=== PATIENT | female | born 1965 | race Caucasian/White ===

== ENCOUNTER 2019-01-31 14:52 | Inpatient (IN) | payer BC ==
[~2019-01-31] VITALS: Ht 172.7 cm; Wt 134.5 kg
[2019-01-31] MEDS ORDERED: ketorolac tromethamine 15mg/ml inj. IV ONE (15:55)
[2019-01-31] MEDS ORDERED: normal saline 1000ML IV soln IVB ONE (15:55)
[2019-01-31 16:23] LABS: BASOPHILS # (AUTO) 0.1 X10'3 (0-0.2); BASOPHILS % (AUTO) 1.2 % (0-1); EOSINOPHILS # (AUTO) 0.1 X10'3 (0-0.9); EOSINOPHILS % (AUTO) 1.5 % (0-6); HEMATOCRIT 44.4 % (35.0-45.0); HEMOGLOBIN 15.2 g/dl (12.0-16.0); LYMPHOCYTES # (AUTO) 0.9 X10'3 (1.1-4.8); LYMPHOCYTES % (AUTO) 18.5 % (21-51); MEAN CORPUSCULAR HEMOGLOBIN 29.2 PG (27.0-31.0); MEAN CORPUSCULAR HGB CONC 34.3 g/dL (33.0-36.5); MEAN CORPUSCULAR VOLUME 85.2 FL (78-98); MONOCYTES # (AUTO) 0.3 X10'3 (0-0.9); MONOCYTES % (AUTO) 6.5 % (2-12); NEUTROPHILS # (AUTO) 3.6 X10'3 (1.8-7.7); NEUTROPHILS % (AUTO) 72.3 % (42-75); PLATELET COUNT 176 X10'3 (140-440); RED BLOOD COUNT 5.21 X10'6 (4.20-5.60); RED CELL DISTRIBUTION WIDTH 14.9 % (11.5-14.5)
[2019-01-31 16:33] LABS: ALANINE AMINOTRANSFERASE 400 U/L (12-78); ALBUMIN 3.6 G/DL (3.4-5.0); ALBUMIN/GLOBULIN RATIO 0.9 (1.1-1.5); ALKALINE PHOSPHATASE 403 IU/L (46-116); AMYLASE 98 U/L (25-115); ANION GAP 10 (8-16); ASPARTATE AMINO TRANSFERASE 185 U/L (10-37); BILIRUBIN,TOTAL 3.4 MG/DL (0.1-1.0); BLOOD UREA NITROGEN 12 MG/DL (7-18); BUN/CREATININE RATIO 14.8 (6.6-38.0); CALCIUM 8.6 MG/DL (8.5-10.1); CHLORIDE 106 MMOL/L (99-107); CREATININE 0.81 MG/DL (0.40-0.90); GLUCOSE 126 MG/DL (70-104); LIPASE 780 U/L (73-393); POTASSIUM 3.9 MMOL/L (3.5-5.1); SODIUM 142 MMOL/L (135-145); TOTAL CARBON DIOXIDE 26.3 MMOL/L (24-32); TOTAL PROTEIN 7.6 G/DL (6.4-8.2); eGFR 74 ML/MIN
[2019-01-31 17:03] LABS: CLARITY,URINE CLEAR (Clear); COLOR,URINE YELLOW (Yellow); GLUCOSE, URINE NEGATIVE (Neg); KETONES,URINE NEGATIVE (Neg); LEUKOCYTE ESTERASE ,URINE SMALL (Neg); NITRITES, URINE NEGATIVE (Neg); OCCULT BLOOD,URINE NEGATIVE (Neg); PROTEIN,URINE NEGATIVE (Neg); UA COLLECTION TYPE CLN CATCH MIDSTREAM; UROBILINOGEN,URINE >=8.0 E.U/dL (0.2-1.0)
[2019-01-31 17:10] LABS: MUCUS STRANDS FEW /LPF (Neg); SQUAMOUS EPITHELIAL CELL,UR MANY /LPF (FEW)
[2019-01-31 17:12] LABS: BACTERIA,URINE 2+ /HPF (Neg); RBC,URINE 0-2 /HPF (0-2)
[2019-01-31] MEDS ORDERED: magnesium Cl slow-release 64mg tablet PO PRN (17:35)
[2019-01-31] MEDS ORDERED: ondansetron/PF 4mg/2ml inj IV PRN (17:35)
[2019-01-31] MEDS ORDERED: acetaminophen 325mg tablet PO PRN (17:35)
[2019-01-31] MEDS ORDERED: magnesium 2GM in 50ml NS 50 ML IV PRN (17:35)
[2019-01-31] MEDS ORDERED: potassium CL 10mEq/100ml bag 100 ML IV PRN ×2 (17:35)
[2019-01-31] MEDS ORDERED: morphine 2 MG/ML inj. syringe IV PRN ×2 (17:35)
[2019-01-31] MEDS ORDERED: magnesium hydroxide 30ml (MOM) UD suspension PO PRN (17:35)
[2019-01-31] MEDS ORDERED: mag hydrox/Alum hydrox/simeth 30ml oral suspension PO PRN (17:35)
[2019-01-31] MEDS ORDERED: magnesium 4gm in 100ml NS 100 ML IV PRN (17:35)
[2019-01-31] MEDS ORDERED: potassium Cl 20 mEq SR tablet PO PRN ×2 (17:35)
[2019-01-31] MEDS ORDERED: HYDROcodone/acetaminophen 5mg/325mg tablet PO PRN (17:35)
[2019-01-31] MEDS ORDERED: ESLI400T PO (18:42)
[2019-01-31] MEDS ORDERED: PANT40TA4 PO (18:43)
[2019-01-31] MEDS ORDERED: CELE50CA PO (18:43)
[2019-01-31] MEDS: normal saline 1000ml 1,000 ML IV SCH (18:44)
[2019-01-31] MEDS ORDERED: CELE-193 PO (18:48)
--- NOTE | 2019-01-31 20:26 | NUR ---
PHARMACIST KATHERIN CALLED AND SAID WE DO NOT CARRY APTIOM IN OUR PHARMACY. HAVE PT BRING IN MED FROM HOME. ADVISED PT WE DO NOT CARRY APTIOM AND TO BRING FROM HOME. SHE SAID OK AND IF SHE NEEDS IT TOMORROW WILL BRING IT IN
[2019-01-31 21:30] VITALS: BP 141/91
[2019-02-01] VITALS: BP 133/86
[2019-02-01 05:37] LABS: BASOPHILS % (AUTO) 0.6 % (0-1); EOSINOPHILS # (AUTO) 0.1 X10'3 (0-0.9); EOSINOPHILS % (AUTO) 1.9 % (0-6); HEMATOCRIT 40.8 % (35.0-45.0); HEMOGLOBIN 13.8 g/dl (12.0-16.0); LYMPHOCYTES % (AUTO) 18.9 % (21-51); MEAN CORPUSCULAR HEMOGLOBIN 29.1 PG (27.0-31.0); MEAN CORPUSCULAR HGB CONC 33.9 g/dL (33.0-36.5); MEAN CORPUSCULAR VOLUME 85.8 FL (78-98); MEAN PLATELET VOLUME 9.3 FL (7.4-10.4); MONOCYTES # (AUTO) 0.5 X10'3 (0-0.9); MONOCYTES % (AUTO) 9.9 % (2-12); NEUTROPHILS # (AUTO) 3.7 X10'3 (1.8-7.7); NEUTROPHILS % (AUTO) 68.7 % (42-75); PLATELET COUNT 150 X10'3 (140-440); RED BLOOD COUNT 4.75 X10'6 (4.20-5.60); RED CELL DISTRIBUTION WIDTH 15.1 % (11.5-14.5); WHITE BLOOD COUNT 5.3 X10'3 (4.5-11.0)
[2019-02-01] MEDS: normal saline 1000ml 1,000 ML IV SCH ×2 (05:41→16:53)
[2019-02-01 05:45] LABS: ALANINE AMINOTRANSFERASE 308 U/L (12-78); ALBUMIN 3.1 G/DL (3.4-5.0); ALBUMIN/GLOBULIN RATIO 0.9 (1.1-1.5); ALKALINE PHOSPHATASE 344 IU/L (46-116); ANION GAP 7 (8-16); ASPARTATE AMINO TRANSFERASE 131 U/L (10-37); BILIRUBIN,TOTAL 2.1 MG/DL (0.1-1.0); BLOOD UREA NITROGEN 12 MG/DL (7-18); CALCIUM 8.1 MG/DL (8.5-10.1); CHLORIDE 110 MMOL/L (99-107); CREATININE 0.86 MG/DL (0.40-0.90); GLUCOSE 125 MG/DL (70-104); MAGNESIUM 2.1 MG/DL (1.5-2.4); PHOSPHORUS 3.3 MG/DL (2.3-4.5); POTASSIUM 3.6 MMOL/L (3.5-5.1); SODIUM 144 MMOL/L (135-145); TOTAL CARBON DIOXIDE 26.6 MMOL/L (24-32); TOTAL PROTEIN 6.6 G/DL (6.4-8.2); eGFR 69 ML/MIN
[2019-02-01 06:04] LABS: LIPASE 5602 U/L (73-393)
--- NOTE | 2019-02-01 06:52 | NUR ---
Patient in room [facility]. I have received report from GLORIA Salazar and had the opportunity to ask questions and assume patient care.
[2019-02-01 06:53] VITALS: BP 125/79
[2019-02-01] MEDS: pantoprazole 40mg Tablet.DR PO SCH (07:48)
[2019-02-01] MEDS: K and/or MAG REPLACEMENT MC SCH (07:51)
[2019-02-01] MEDS ORDERED: ESLICARBAZEPINE ACETATE 400 MG PO SCH (08:00)
[2019-02-01 11:00] VITALS: BP 129/75
[2019-02-01 17:45] LABS: CHOL/HDL RATIO 4.8 (0.00-4.99); CHOLESTEROL 230 MG/DL (0-200); HDL CHOLESTEROL 48 MG/DL (35-60); LDL CHOLESTEROL 154 MG/DL (50-100); TRIGLYCERIDES 99 MG/DL (20-135)
[2019-02-01 18:17] LABS: PARTIAL THROMBOPLASTIN TIME 30 SECONDS (22-32)
[2019-02-01 18:19] LABS: % IRON SATURATION 38 % (11-46); IRON 106 UG/DL (49-151); TOTAL IRON BINDING CAPACITY 278 UG/DL (259-388)
[2019-02-01 18:30] LABS: FERRITIN 128 NG/ML (8-252)
--- NOTE | 2019-02-01 18:35 | NUR ---
Problems reprioritized. Patient report given, questions answered & plan of care reviewed with JOSE ALFREDO CASTRO.
[2019-02-01 20:00] VITALS: BP 137/85
[2019-02-01] MEDS ORDERED: ESLICARBAZEPINE ACETATE 800 MG PO SCH (21:45)
[2019-02-02] VITALS: BP 124/69
[2019-02-02] MEDS: normal saline 1000ml 1,000 ML IV SCH (02:58)
[2019-02-02 05:02] LABS: BASOPHILS % (AUTO) 0.6 % (0-1); EOSINOPHILS # (AUTO) 0.1 X10'3 (0-0.9); EOSINOPHILS % (AUTO) 2.3 % (0-6); HEMATOCRIT 39.4 % (35.0-45.0); HEMOGLOBIN 13.4 g/dl (12.0-16.0); LYMPHOCYTES # (AUTO) 1.3 X10'3 (1.1-4.8); LYMPHOCYTES % (AUTO) 30.4 % (21-51); MEAN CORPUSCULAR HEMOGLOBIN 29.2 PG (27.0-31.0); MEAN CORPUSCULAR HGB CONC 33.9 g/dL (33.0-36.5); MEAN PLATELET VOLUME 9.1 FL (7.4-10.4); MONOCYTES # (AUTO) 0.3 X10'3 (0-0.9); MONOCYTES % (AUTO) 7.5 % (2-12); NEUTROPHILS # (AUTO) 2.5 X10'3 (1.8-7.7); NEUTROPHILS % (AUTO) 59.2 % (42-75); PLATELET COUNT 132 X10'3 (140-440); RED BLOOD COUNT 4.58 X10'6 (4.20-5.60); RED CELL DISTRIBUTION WIDTH 14.7 % (11.5-14.5); WHITE BLOOD COUNT 4.2 X10'3 (4.5-11.0)
[2019-02-02 05:20] LABS: ALANINE AMINOTRANSFERASE 214 U/L (12-78); ALBUMIN 2.9 G/DL (3.4-5.0); ALBUMIN/GLOBULIN RATIO 0.8 (1.1-1.5); ALKALINE PHOSPHATASE 285 IU/L (46-116); ANION GAP 9 (8-16); ASPARTATE AMINO TRANSFERASE 75 U/L (10-37); BLOOD UREA NITROGEN 15 MG/DL (7-18); BUN/CREATININE RATIO 20.3 (6.6-38.0); CHLORIDE 108 MMOL/L (99-107); CREATININE 0.74 MG/DL (0.40-0.90); GLUCOSE 84 MG/DL (70-104); LIPASE 1054 U/L (73-393); PHOSPHORUS 3.6 MG/DL (2.3-4.5); POTASSIUM 3.6 MMOL/L (3.5-5.1); SODIUM 143 MMOL/L (135-145); TOTAL CARBON DIOXIDE 25.9 MMOL/L (24-32); TOTAL PROTEIN 6.4 G/DL (6.4-8.2); eGFR 82 ML/MIN
[2019-02-02 05:25] LABS: CALCIUM 8.7 MG/DL (8.5-10.1)
--- NOTE | 2019-02-02 06:30 | NUR ---
Problems reprioritized. Patient report given, questions answered & plan of care reviewed with LIZA RN.
[2019-02-02 07:30] VITALS: BP 127/76
[2019-02-02] MEDS: K and/or MAG REPLACEMENT MC SCH (08:00)
[2019-02-02] MEDS: pantoprazole 40mg Tablet.DR PO SCH (08:10)
[2019-02-02 11:40] VITALS: BP 117/71
[2019-02-02] MEDS ORDERED: HYDR-3965 PO (13:53)
[2019-02-03 07:35] LABS: HBSAG SCREEN Negative (Negative); HEP A AB, IGM Negative (Negative); HEP B CORE AB, IGM Negative (Negative); HEPATITIS C ANTIBODY <0.1 s/co ratio (0.0-0.9)
[2019-02-03 08:16] LABS: AFP,SERUM, TUMOR MARKER 2.4 ng/mL (0.0-8.3); GAMMA GLUTAMLY TRANSPEPTIDASE 1202 IU/L (0-60)
[2019-02-03 17:32] LABS: ANTINUCLEAR ANTIBODIES Negative (Negative)
== END 2019-02-02 14:27 | disposition home or self-care (01) | DRG 444 ==
LOC: ER 14:53 → ED HOLD 17:44 → SUR 3N 21:00
PROVIDERS: ADMIT Hospitalist; ATTEND Internal Medicine
DX: K80.42 Calculus of bile duct with acute cholecystitis without obstruction (principal); K85.90 Acute pancreatitis without necrosis or infection, unspecified; Z68.42 Body mass index [BMI] 45.0-49.9, adult; E86.0 Dehydration; E66.01 Morbid (severe) obesity due to excess calories; R19.7 Diarrhea, unspecified; Z90.49 Acquired absence of other specified parts of digestive tract
CPT/HCPCS: 36415; 74181; 76700; 80053; 80061; 80074; 81001; 82103; 82140; 82150; 82728; 82977; 83540; 83550; 83690; 83735; 84100; 85025; 85610; 85730; 86038; 87081; 87324; 87449; 96374; 99285; G0378; J1885; J7030

== ENCOUNTER 2023-04-29 05:39 | Outpatient (CLI) | payer BC ==
[2023-04-29] VITALS (21 sets, daily range): BP systolic 129–167; BP diastolic 77–95; PULSE 94–113
[~2023-04-29 05:39] MED LIST: CELE-193 PO; ESLI400T PO; PANT40TA54 PO
== END 2023-04-29 23:59 | disposition home or self-care (01) ==
LOC: CARD DIAG 05:39
PROVIDERS: ATTEND Internal Medicine Interventional Cardiology
DX: R55 Syncope and collapse (principal)
CPT/HCPCS: 93660

== ENCOUNTER 2024-03-11 09:08 | Emergency (ER) | payer BC ==
[~2024-03-11] VITALS: Ht 172.7 cm; Wt 119.9 kg
[2024-03-11 09:12] VITALS: BP 175/95; PULSE 90; RESP 16; TEMP 98.1; O2SAT 100
[2024-03-11] MEDS ORDERED: LIDO700A32 TD (10:40)
== END 2024-03-11 10:58 | disposition home or self-care (01) ==
LOC: ER 09:09
DX: M25.511 Pain in right shoulder (principal); Z88.1 Allergy status to other antibiotic agents; Z79.899 Other long term (current) drug therapy; Z79.2 Long term (current) use of antibiotics; Z90.49 Acquired absence of other specified parts of digestive tract
CPT/HCPCS: 73030; 99283